=== PATIENT | male | born 1960 | race Caucasian/White ===

== ENCOUNTER 2018-01-09 07:45 | Outpatient (CLI) | payer BC ==
--- NOTE | 2018-01-09 11:55 | Ultrasound Report ---
Reason: URINARY FREQUENCY Procedure Date: 01/09/2018 Accession Number: [id number] / [id number] Procedure: US - Bladder CPT Code: FULL RESULT: EXAM: BLADDER, LIMITED EXAM DATE: 01/09/2018 09:00 AM. CLINICAL HISTORY: URINARY FREQUENCY. COMPARISON: None. TECHNIQUE: Real-time scanning was performed with static images obtained. FINDINGS: Bladder appears grossly normal. Bilateral ureteral jets are seen. Prevoid bladder volume: 122 cc. Post void bladder volume: 0 cc. Prostate measures 3.8 x 3.4 x 4.7 cm. IMPRESSION: 1. Negative bladder ultrasound. 2. No post void bladder residual. RAD[facility]
== END 2018-01-09 07:46 | disposition home or self-care (01) ==
LOC: DI 07:45
PROVIDERS: ATTEND Internal Medicine
DX: R35.0 Frequency of micturition (principal)
CPT/HCPCS: 76857

== ENCOUNTER 2020-04-14 12:33 | Outpatient (CLI) | payer BC ==
--- NOTE | 2020-04-14 15:16 | XRAY Report ---
PROCEDURE: Knee 3 View LT INDICATIONS: PAIN/EFFUSION L KNEE TECHNIQUE: 3 views of the left knee(s) were acquired. COMPARISON: None. FINDINGS: Exam is limited given knee flexion of the lateral view limiting evaluation for joint effusion. Bones: Mild tricompartment osteophytosis. There is mild lateral patellar deviation. Joint spaces are maintained. Soft tissues: No significant joint effusion within limits of this examination. Punctate calcificatio n along the posterior joint space on the lateral view may represent a intra-articular loose body.. N o suspicious soft tissue calcifications. IMPRESSION: Mild tricompartmental osteoarthritis. Punctate calcifications are noted along the posterior joint spa ce may represent an intra-articular loose body. Mild lateral patellar deviation. Recommend correlation with patellar maltracking abnormalities. Reviewed by: John Dangelo DO on 04/14/2020 2:14 PM JEFFY Approved by: John Dangelo DO on 04/14/2020 2:14 PM JEFFY Station ID: [id number]
--- NOTE | 2020-04-14 15:24 | Ultrasound Report ---
PROCEDURE: Head or Neck Soft Tissue INDICATIONS: SWELLING, MASS, LUMP OF NECK TECHNIQUE: Real time scanning was performed of the neck region of interest, with image documentation . COMPARISON: None. FINDINGS: Underlying area of concern adjacent to the right mandible is a mass with the appearance of a lymph node. This measures approximately 1.0 cm in short axis diameter with the cortex measuring diaz roximately 4 mm. There is internal vascularity within the fatty hilum. There are multiple adjacent sm aller lymph nodes. There is mildly prominent left sided lymph nodes as well measuring up to 8 mm in s hort axis diameter. IMPRESSION: Mildly enlarged lymph node overlying the right mandible. Recommend clinical correlation and consider biopsy given report of stability since at least February 2020. Reviewed by: John Dangelo DO on 04/14/2020 2:22 PM [place] Approved by: John Dangelo DO on 04/14/2020 2:22 PM [place] Station ID: [id number]
== END 2020-04-14 12:34 | disposition home or self-care (01) ==
LOC: DI 12:33
PROVIDERS: ATTEND Internal Medicine
DX: R59.0 Localized enlarged lymph nodes (principal); M17.12 Unilateral primary osteoarthritis, left knee; M25.862 Other specified joint disorders, left knee

== ENCOUNTER 2021-01-01 08:00 | Outpatient (CLI) | payer BC | END 2021-01-01 23:59 | disposition home or self-care (01) | LOC: LAB.S 08:00 | PROVIDERS: ATTEND Physician Assistant Medical | DX: R09.81 Nasal congestion (principal); Z20.822 Contact with and (suspected) exposure to COVID-19 ==